=== PATIENT | female | born 2000 | race Caucasian/White ===

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

== ENCOUNTER 2021-06-19 18:34 | Outpatient (REF) | payer BC, SELFPAY ==
[2021-06-19 19:56] LABS: Bilirubin Negative (Negative); Blood Trace-lysed (Negative); Clarity Sl Cloudy (Clear); Glucose Negative (Negative); Ketones Negative (Negative); Leukocyte Esterase Moderate (Negative); Nitrite Positive (Negative); Specific Gravity >= 1.030 (1.005-1.025); Urobilinogen 0.2 EU/dL (Up TO 0.2); pH 5.5 (5-8)
[2021-06-19 20:05] LABS: Bacteria Many HPF (Negative); C & S Indicated? Yes; Casts Negative LPF (Negative); Crystals Negative HPF (Negative); Epithelial Cells Few HPF (Negative); Mucus Trace (Negative)
== END 2021-06-19 18:35 | disposition home or self-care (01) ==
LOC: NCHCN 18:34
PROVIDERS: Visit Provider Physician Assistant
DX: N39.0 Urinary tract infection, site not specified (principal)
CPT/HCPCS: 87077; 81003; 81015; 87086; 87186

== ENCOUNTER 2021-07-09 18:59 | Outpatient (REF) | payer BC, SELFPAY ==
[2021-07-11 15:18] LABS: COVID-19 RT-PCR UVMMC Result Negative (Negative)
== END 2021-07-09 19:00 | disposition home or self-care (01) ==
LOC: LBN 18:59
PROVIDERS: Visit Provider Family Medicine
DX: Z20.822 Contact with and (suspected) exposure to COVID-19 (principal)
CPT/HCPCS: U0003

== ENCOUNTER 2021-09-24 14:01 | Outpatient (REF) | payer BC, SELFPAY ==
[2021-09-24 13:55] LABS: Bilirubin Negative (Negative); Blood Small (Negative); Clarity Cloudy (Clear); Glucose Negative (Negative); Ketones Negative (Negative); Leukocyte Esterase Small (Negative); Nitrite Positive (Negative); Specific Gravity 1.025 (1.005-1.025); Urobilinogen 0.2 EU/dL (Up TO 0.2); pH 6.5 (5-8)
[2021-09-24 14:03] LABS: Bacteria Many HPF (Negative); Epithelial Cells Rare HPF (Negative); Other Cells Rare Renal (Negative); RBC 0-2 HPF (0-2); WBC 20-50 HPF (0-5)
[2021-09-24 14:04] LABS: C & S Indicated? Yes; Crystals Negative HPF (Negative); Mucus Negative (Negative)
== END 2021-09-24 14:02 | disposition home or self-care (01) ==
LOC: LBN 14:01
PROVIDERS: Visit Provider Nurse Practitioner Family
DX: N39.0 Urinary tract infection, site not specified (principal); R30.0 Dysuria
CPT/HCPCS: 87077; 81003; 81015; 87086; 87186